=== PATIENT | female | born 1985 | race Caucasian/White ===

== ENCOUNTER 2023-05-14 11:45 | Emergency (ER) | payer OTHER ==
[~2023-05-14] VITALS: Ht 160 cm; Wt 85.7 kg
[2023-05-14 11:52] VITALS: O2SAT 98
[2023-05-14] MEDS ORDERED: IBUP-1955 PO (14:20)
== END 2023-05-14 14:24 | disposition home or self-care (01) ==
LOC: ER 11:45
DX: N64.4 Mastodynia (principal); R07.89 Other chest pain; Z88.1 Allergy status to other antibiotic agents
CPT/HCPCS: 71045; 76642; A4663

== ENCOUNTER 2024-10-30 14:50 | Emergency (ER) | payer MEDICAID, OTHER ==
[~2024-10-30] VITALS: Ht 157.5 cm; Wt 77.6 kg
[~2024-10-30 14:50] MED LIST: IBUP-1955 PO
[2024-10-30] MEDS ORDERED: ONDANSETRON 4 MG/2 ML VIAL IV ONE (16:00)
[2024-10-30] MEDS ORDERED: HYDROMORPHONE 1 MG/1 ML DISP.SYRIN IV ONE (16:00)
[2024-10-30] MEDS ORDERED: IV NORMAL SALINE 1000 ML BAG IV ONE (16:00)
[2024-10-30 16:12] LABS: *BILIRUBIN,URIN NEGATIVE (NEGATIVE); *CLARITY,URINE CLEAR (CLEAR); *COLOR,URINE YELLOW (YELLOW); *KETONES,URINE 1+ (NEGATIVE); *PROTEIN,URINE NEGATIVE (NEGATIVE); *UROBILINOGEN,URINE 0.2 E.U./dl (NORMAL); LEUKOCYTE ESTERASE ,URINE NEGATIVE (NEGATIVE); NITRITE, URINE NEGATIVE (NEGATIVE); PH,URINE 6.5 (5.0-8.0); UGLUCOSE NEGATIVE (NEGATIVE)
[2024-10-30 16:14] LABS: *BLOOD, URINE TRACE (NEGATIVE); *URINE HCG, QUAL NEGATIVE (NEGATIVE)
[2024-10-30 16:20] LABS: BACTERIA,URINE FEW /HPF (NONE SEEN); RBC,URINE 0-3 /HPF (0-3); SQUAMOUS EPITHELIAL CELL,UR FEW /HPF (NONE SEEN); WBC,URINE 0-3 /HPF (0-3)
[2024-10-30] MEDS: diphenhydrAMINE 25 MG CAP PO ONE (16:35)
[2024-10-30] MEDS ORDERED: HYDROMORPHONE HCL 2 MG TABLET ONE (16:35)
[2024-10-30] MEDS ORDERED: diphenhydrAMINE 25 MG CAP PO ONE (16:35)
[2024-10-30] MEDS: HYDROMORPHONE HCL 2 MG TABLET PO ONE (16:35)
[2024-10-30 16:58] LABS: CALCIUM 8.6 mg/dL (8.5-10.1); CARBON DIOXIDE 24 mmol/L (21-32); CHLORIDE 105 mmol/L (98-107); CREATININE 0.5 mg/dL (0.6-1.3); GLUCOSE 102 mg/dL (74-106); POTASSIUM 3.8 mmol/L (3.5-5.1); SODIUM SERUM 139 mmol/L (136-145); UREA NITROGEN, BLOOD 9 mg/dL (7-18)
[2024-10-30 17:01] LABS: BASOPHILS # (AUTO) 0.1 K/UL (0.0-0.2); BASOPHILS % (AUTO) 0.4 % (0.0-2.0); DIFFERENTIAL COMMENT 1; EOSINOPHILS # (AUTO) 0.1 K/uL (0.0-0.7); EOSINOPHILS % (AUTO) 0.4 % (0.0-7.0); HEMATOCRIT 32.4 % (31.2-41.9); HEMOGLOBIN 10.6 g/dL (10.9-14.3); LYMPHOCYTES # (AUTO) 3.3 K/uL (0.8-4.8); LYMPHOCYTES % (AUTO) 24.9 % (20.5-51.5); MEAN CORPUSCULAR HGB CONC 33 g/dL (32.3-35.6); MEAN CORPUSCULAR VOLUME 85.4 fL (75.5-95.3); MONOCYTES # (AUTO) 0.4 K/uL (0.1-1.30); MONOCYTES % (AUTO) 2.8 % (0.0-11.0); NEUTROPHILS # (AUTO) 9.4 K/uL (1.8-8.9); NEUTROPHILS % (AUTO) 71.5 % (38.5-71.5); PLATELET COUNT (AUTO) 314 K/uL (179-408); RED BLOOD CELL COUNT(AUTO) 3.79 MIL/uL (3.63-4.92); RED CELL DISTRIBUTION WIDTH 14.8 % (12.3-17.7); WHITE BLOOD COUNT (AUTO) 13.2 K/uL (3.8-11.8)
[2024-10-30 17:04] LABS: ALANINE AMINOTRANSFERASE 21 U/L (14-59); ALBUMIN 3.8 g/dL (3.4-5.0); ALKALINE PHOSPHATASE 47 U/L (50-136); ASPARTATE AMINOTRANSFERASE 23 U/L (15-37); BILIRUBIN,DIRECT 0.2 mg/dL (0.0-0.2); BILIRUBIN,TOTAL 0.7 mg/dL (0.2-1.0); LIPASE 26 U/L (16-77); TOTAL PROTEIN, SERUM 7.5 g/dL (6.4-8.2)
[2024-10-30] MEDS ORDERED: HYDR-3980 PO (18:50)
[2024-10-30] MEDS ORDERED: DOXY100C5 PO (18:50)
[2024-10-30 19:40] VITALS: BP 126/78; TEMP 98; O2SAT 95
== END 2024-10-30 19:40 | disposition home or self-care (01) ==
LOC: ER 14:50
DX: R10.2 Pelvic and perineal pain (principal); N80.9 Endometriosis, unspecified; R94.31 Abnormal electrocardiogram [ECG] [EKG]; Z87.440 Personal history of urinary (tract) infections; Z88.1 Allergy status to other antibiotic agents; Z90.49 Acquired absence of other specified parts of digestive tract; Z98.84 Bariatric surgery status; Z99.2 Dependence on renal dialysis
CPT/HCPCS: 99284; 74176; 76856; 80076; 80048; 81001; 84703; 83690; 85025; 85730; 87086; 84484; 36415; 93005; Q0163; A4606; A4663

== ENCOUNTER 2024-12-04 17:17 | Emergency (ER) | payer MEDICAID ==
[~2024-12-04] VITALS: Ht 157.5 cm; Wt 75.7 kg
[~2024-12-04 17:17] MED LIST changes: +DOXY100C5 PO; +HYDR-3980 PO
[2024-12-04 17:46] LABS: *BILIRUBIN,URIN NEGATIVE (NEGATIVE); *CLARITY,URINE CLEAR (CLEAR); *COLOR,URINE YELLOW (YELLOW); *KETONES,URINE 1+ (NEGATIVE); *PROTEIN,URINE NEGATIVE (NEGATIVE); *UROBILINOGEN,URINE 0.2 E.U./dl (NORMAL); LEUKOCYTE ESTERASE ,URINE NEGATIVE (NEGATIVE); NITRITE, URINE NEGATIVE (NEGATIVE); PH,URINE 6.5 (5.0-8.0); UGLUCOSE NEGATIVE (NEGATIVE)
[2024-12-04 17:49] LABS: *BLOOD, URINE TRACE (NEGATIVE)
[2024-12-04 17:51] LABS: *URINE HCG, QUAL NEGATIVE (NEGATIVE)
[2024-12-04 17:59] LABS: BACTERIA,URINE NONE SEEN /HPF (NONE SEEN); RBC,URINE 0-3 /HPF (0-3); SQUAMOUS EPITHELIAL CELL,UR FEW /HPF (NONE SEEN); WBC,URINE 0-3 /HPF (0-3)
[2024-12-04 18:08] LABS: BASOPHILS % (AUTO) 0.5 % (0.0-2.0); EOSINOPHILS # (AUTO) 0.1 K/uL (0.0-0.7); EOSINOPHILS % (AUTO) 1.5 % (0.0-7.0); HEMATOCRIT 33.7 % (31.2-41.9); HEMOGLOBIN 11.6 g/dL (10.9-14.3); LYMPHOCYTES # (AUTO) 3.9 K/uL (0.8-4.8); LYMPHOCYTES % (AUTO) 50.1 % (20.5-51.5); MEAN CORPUSCULAR HEMOGLOBIN 29.7 uug (24.7-32.8); MEAN CORPUSCULAR HGB CONC 34 g/dL (32.3-35.6); MEAN CORPUSCULAR VOLUME 86.5 fL (75.5-95.3); MONOCYTES # (AUTO) 0.4 K/uL (0.1-1.30); MONOCYTES % (AUTO) 5.6 % (0.0-11.0); NEUTROPHILS # (AUTO) 3.3 K/uL (1.8-8.9); NEUTROPHILS % (AUTO) 42.3 % (38.5-71.5); PLATELET COUNT (AUTO) 292 K/uL (179-408); RED CELL DISTRIBUTION WIDTH 14.8 % (12.3-17.7); WHITE BLOOD COUNT (AUTO) 7.8 K/uL (3.8-11.8)
[2024-12-04 18:10] LABS: DIFFERENTIAL COMMENT 1
[2024-12-04 18:16] LABS: CALCIUM 8.3 mg/dL (8.5-10.1); CREATININE 0.8 mg/dL (0.6-1.3); POTASSIUM 4.2 mmol/L (3.5-5.1)
[2024-12-04 18:21] LABS: ALBUMIN 3.7 g/dL (3.4-5.0); BILIRUBIN,TOTAL 0.7 mg/dL (0.2-1.0)
[2024-12-04] MEDS ORDERED: LACT10SO58 PO (18:26)
[2024-12-04 18:43] VITALS: BP 114/73; O2SAT 98
== END 2024-12-04 18:44 | disposition home or self-care (01) ==
LOC: ER 17:17
DX: R55 Syncope and collapse (principal); Z88.8 Allergy status to other drugs, medicaments and biological substances
CPT/HCPCS: 36415; 74018; 84703; 85025; A4606; A4663

== ENCOUNTER 2025-03-24 15:32 | Emergency (ER) | payer MEDICAID ==
[~2025-03-24] VITALS: Ht 157.5 cm; Wt 68.0 kg
[2025-03-24 19:09] LABS: PLATELET COUNT (AUTO) 302 K/uL (179-408); RED BLOOD CELL COUNT(AUTO) 4.07 MIL/uL (3.63-4.92); RED CELL DISTRIBUTION WIDTH 14.7 % (12.3-17.7); WHITE BLOOD COUNT (AUTO) 7.7 K/uL (3.8-11.8)
[2025-03-24 19:16] LABS: CREATININE 0.5 mg/dL (0.6-1.3); SODIUM SERUM 144 mmol/L (136-145); UREA NITROGEN, BLOOD 13 mg/dL (7-18)
[2025-03-24 19:19] LABS: *BILIRUBIN,URIN NEGATIVE (NEGATIVE); *BLOOD, URINE 1+ (NEGATIVE); *CLARITY,URINE CLEAR (CLEAR); *COLOR,URINE YELLOW (YELLOW); *KETONES,URINE NEGATIVE (NEGATIVE); *PROTEIN,URINE NEGATIVE (NEGATIVE); *URINE HCG, QUAL NEGATIVE (NEGATIVE); *UROBILINOGEN,URINE 0.2 E.U./dl (NORMAL); LEUKOCYTE ESTERASE ,URINE NEGATIVE (NEGATIVE); NITRITE, URINE NEGATIVE (NEGATIVE); UGLUCOSE NEGATIVE (NEGATIVE)
[2025-03-24 19:22] LABS: ASPARTATE AMINOTRANSFERASE 14 U/L (15-37); TOTAL PROTEIN, SERUM 7.7 g/dL (6.4-8.2)
[2025-03-24 19:33] VITALS: BP 103/63
[2025-03-24] MEDS ORDERED: CLIN100S VG (21:37)
[2025-03-24] MEDS ORDERED: CLIN-118 PO (21:37)
[2025-03-24 21:40] VITALS: BP 105/63; TEMP 97.7; O2SAT 98
== END 2025-03-24 21:40 | disposition home or self-care (01) ==
LOC: ER 15:40
DX: N76.0 Acute vaginitis (principal); R10.2 Pelvic and perineal pain; Z88.1 Allergy status to other antibiotic agents; Z90.49 Acquired absence of other specified parts of digestive tract; Z98.84 Bariatric surgery status
CPT/HCPCS: 36415; 83690; 84703; 85025; A4606; A4663

== ENCOUNTER 2025-05-23 14:03 | Emergency (ER) | payer MEDICAID ==
[~2025-05-23] VITALS: Ht 157.5 cm; Wt 68.0 kg
[~2025-05-23 14:03] MED LIST changes: +CLIN-118 PO; +CLIN100S VG
[2025-05-23 14:07] VITALS: BP 109/72
[2025-05-23] MEDS ORDERED: IV NS 1000 ML 1,000 ML IV ONE (14:45)
[2025-05-23] MEDS ORDERED: KETOROLAC TROMETHAMINE 30 MG INJ IVP ONE (14:45)
[2025-05-23] MEDS ORDERED: diphenhydrAMINE 50 MG/1 ML VIAL IV ONE (14:45)
[2025-05-23] MEDS ORDERED: METOCLOPRAMIDE HCL 10 MG/2 ML VIAL IV ONE (14:45)
[2025-05-23] MEDS ORDERED: METOCLOPRAMIDE HCL 10 MG/2 ML VIAL ONE (14:56)
[2025-05-23] MEDS ORDERED: diphenhydrAMINE 50 MG/1 ML VIAL ONE (14:56)
[2025-05-23 15:11] LABS: PLATELET COUNT (AUTO) 344 K/uL (179-408); RED BLOOD CELL COUNT(AUTO) 4.13 MIL/uL (3.63-4.92); RED CELL DISTRIBUTION WIDTH 14.1 % (12.3-17.7); WHITE BLOOD COUNT (AUTO) 6.7 K/uL (3.8-11.8)
[2025-05-23] MEDS ORDERED: KETOROLAC TROMETHAMINE 30 MG INJ ONE (15:11)
[2025-05-23] MEDS ORDERED: METOCLOPRAMIDE HCL 10 MG TABLET ONE (15:11)
[2025-05-23] MEDS ORDERED: diphenhydrAMINE 25 MG CAP PO ONE (15:11)
[2025-05-23 15:21] LABS: CREATININE 0.7 mg/dL (0.6-1.3); SODIUM SERUM 142.0 mmol/L (136-145); UREA NITROGEN, BLOOD 12.0 mg/dL (7-18)
[2025-05-23 15:23] LABS: *BILIRUBIN,URIN NEGATIVE (NEGATIVE); *CLARITY,URINE CLEAR (CLEAR); *COLOR,URINE YELLOW (YELLOW); *KETONES,URINE NEGATIVE (NEGATIVE); *PROTEIN,URINE NEGATIVE (NEGATIVE); *UROBILINOGEN,URINE 0.2 E.U./dl (NORMAL); LEUKOCYTE ESTERASE ,URINE NEGATIVE (NEGATIVE); NITRITE, URINE NEGATIVE (NEGATIVE); UGLUCOSE NEGATIVE (NEGATIVE)
[2025-05-23] MEDS: KETOROLAC TROMETHAMINE 30 MG INJ IM ONE (15:23)
[2025-05-23] MEDS: diphenhydrAMINE 25 MG CAP PO ONE (15:23)
[2025-05-23] MEDS: METOCLOPRAMIDE HCL 10 MG TABLET PO ONE (15:23)
[2025-05-23 15:26] LABS: ASPARTATE AMINOTRANSFERASE 35.0 U/L (15-37); TOTAL PROTEIN, SERUM 8.5 g/dL (6.4-8.2)
[2025-05-23 15:28] LABS: *BLOOD, URINE TRACE (NEGATIVE)
[2025-05-23] MEDS ORDERED: SUMA100T16 PO (17:46)
[2025-05-23] MEDS ORDERED: GABA300C PO (18:13)
[2025-05-23 18:25] VITALS: BP 103/72; TEMP 98.1; O2SAT 99
== END 2025-05-23 18:27 | disposition home or self-care (01) ==
LOC: ER 14:34
DX: R51.9 Headache, unspecified (principal); R29.2 Abnormal reflex; M79.632 Pain in left forearm; Z79.899 Other long term (current) drug therapy; Z90.49 Acquired absence of other specified parts of digestive tract; Z98.84 Bariatric surgery status; Z88.1 Allergy status to other antibiotic agents
CPT/HCPCS: 36415; 82330; 83735; 85025; A4606; A4663; J1200; J1885; J2765; J7040; J8597; Q0163